=== PATIENT | female | born 2005 | race African-American/Black ===

== ENCOUNTER 2025-01-12 15:56 | Emergency (ER) | payer OTHER ==
[~2025-01-12] VITALS: Ht 172.7 cm; Wt 75.0 kg
[2025-01-12 16:04] VITALS: O2SAT 100
[2025-01-12 17:35] LABS: BASOPHILS % 0.6 % (0.0-2.0); DIFFERENTIAL COMMENT 0; EOSINOPHILS % 0.8 % (0.0-5.0); HEMATOCRIT. 32.9 % (36.0-48.0); HEMOGLOBIN. 10.5 g/dL (12.0-16.0); LYMPHOCYTES % 33.6 % (20.0-50.0); MEAN CORPUSCULAR HEMOGLOBIN 22.9 pg (28.0-32.0); MEAN CORPUSCULAR HGB CONC 31.8 g/dL (31.0-37.0); MEAN PLATELET VOLUME 8.3 fl (7.4-10.4); MONOCYTES % 8.7 % (2.0-8.0); NEUTROPHILS % 56.3 % (40.0-76.0); PLATELET 389 x1000/uL (130-400); RED BLOOD CELL COUNT 4.58 mill/uL (4.2-5.4); RED CELL DISTRIBUTION WIDTH 19.5 % (11.6-14.6); WHITE BLOOD COUNT 5.8 x1000/uL (4.5-11.0)
[2025-01-12 17:42] LABS: CHLORIDE 104 mEq/L (98-107); POTASSIUM 3.9 mEq/L (3.5-5.1); SODIUM 137 mEq/L (136-145)
[2025-01-12 17:43] LABS: CALCIUM 9.7 mg/dL (8.7-10.4); CARBON DIOXIDE 28 mEq/L (21-32)
[2025-01-12 17:48] LABS: CREATININE 0.8 mg/dL (0.6-1.0); GLUCOSE 94 mg/dL (70-105); UREA NITROGEN BLOOD 10 mg/dL (9-23)
[2025-01-12 17:49] LABS: B-HCG QUANTITATIVE 343 mIU/mL (<6)
[2025-01-12 18:13] LABS: CLARITY URINE CLOUDY (CLEAR); COLOR URINE YELLOW (YELLOW); GLUCOSE URINE NEGATIVE (NEGATIVE); KETONES URINE NEGATIVE (NEGATIVE); LEUKOCYTE ESTERASE URINE 1+ (NEGATIVE); NITRITE URINE NEGATIVE (NEGATIVE); OCCULT BLOOD URINE 3+ (NEGATIVE); PROTEIN URINE NEGATIVE (NEGATIVE); SPECIFIC GRAVITY URINE 1.021 (1.005-1.030); UROBILINOGEN URINE 0.2 E.U./dL (0.2-1.0)
[2025-01-12 19:02] LABS: BACTERIA URINE 3+; SQUAMOUS EPITHELIAL CELL URINE 2+ /lpf (RARE/1+)
[2025-01-12] MEDS ORDERED: NITR100C MT (19:09)
[2025-01-12 19:17] VITALS: BP 105/72; PULSE 88; RESP 18; TEMP 36.7; O2SAT 100
== END 2025-01-12 19:21 | disposition home or self-care (01) ==
LOC: EDBD 15:56 → ER 15:56
DX: O20.0 Threatened abortion (principal); O23.40 Unspecified infection of urinary tract in pregnancy, unspecified trimester; N39.0 Urinary tract infection, site not specified; Z3A.00 Weeks of gestation of pregnancy not specified
CPT/HCPCS: 36415; 76801; 80048; 81003; 81025; 84702; 85025; 86850; 86900; 99284

== ENCOUNTER 2025-01-14 13:42 | Emergency (ER) | payer OTHER ==
[~2025-01-14] VITALS: Ht 172.7 cm; Wt 74.0 kg
[~2025-01-14 13:42] MED LIST: NITR100C MT
[2025-01-14 13:44] VITALS: O2SAT 98
[2025-01-14 16:29] VITALS: BP 115/72; PULSE 78; RESP 18; TEMP 36.7; O2SAT 98
== END 2025-01-14 16:29 | disposition home or self-care (01) ==
LOC: ER 13:42
DX: O03.9 Complete or unspecified spontaneous abortion without complication (principal); N89.8 Other specified noninflammatory disorders of vagina; Z88.6 Allergy status to analgesic agent; Z3A.01 Less than 8 weeks gestation of pregnancy
CPT/HCPCS: 36415; 76830; 76856; 84702; 99284

== ENCOUNTER 2025-02-23 19:13 | Inpatient (IN) | payer MEDICAID, OTHER ==
[~2025-02-23] VITALS: Ht 172.7 cm; Wt 64.0 kg
[2025-02-23 20:10] LABS: BASOPHILS % 0.3 % (0.0-2.0); EOSINOPHILS % 0.2 % (0.0-5.0); HEMATOCRIT. 32.3 % (36.0-48.0); HEMOGLOBIN. 10.2 g/dL (12.0-16.0); LYMPHOCYTES % 19.6 % (20.0-50.0); MEAN PLATELET VOLUME 7.6 fl (7.4-10.4); MONOCYTES % 5.8 % (2.0-8.0); NEUTROPHILS % 74.1 % (40.0-76.0); PLATELET 403 x1000/uL (130-400); RED BLOOD CELL COUNT 4.37 mill/uL (4.2-5.4); RED CELL DISTRIBUTION WIDTH 19.1 % (11.6-14.6)
[2025-02-23 20:23] LABS: CREATININE 0.9 mg/dL (0.6-1.0)
[2025-02-23 20:24] LABS: UREA NITROGEN BLOOD 14 mg/dL (9-23)
[2025-02-23 20:46] LABS: B-HCG QUANTITATIVE 2268 mIU/mL (<6)
[2025-02-23] MEDS ORDERED: SODIUM CHLORIDE 0.9% 1,000 ML IV ONE (21:30)
[2025-02-23] MEDS: LACTATED RINGERS 1,000 ML IV SCH (22:46)
[2025-02-23] MEDS: ONDANSETRON HCL 4MG/2ML INJ IV ONE (22:46)
[2025-02-23] MEDS: MORPHINE SULFATE 4 MG/ML INJ (FOR IV/IM USE) IV ONE (22:46)
[2025-02-24] VITALS (7 sets, daily range): BP systolic 98–110; BP diastolic 40–72; PULSE 81–107; RESP 18–22; TEMP 36.1–37.1; O2SAT 95–100
[2025-02-24] MEDS ORDERED: IPRATROPIUM/ALBUTEROL 0.5-3(2.5)MG/3ML NEB HHN PRN
[2025-02-24] MEDS ORDERED: DEXTROSE 50% WATER 50ML SYRINGE IV PRN
[2025-02-24] MEDS ORDERED: ONDANSETRON HCL 4MG/2ML INJ IV PRN ×2 (01:15)
[2025-02-24] MEDS ORDERED: ROCURONIUM BROMIDE 10MG/ML VIAL 5ML IV ONE ×2 (01:18→01:55)
[2025-02-24] MEDS ORDERED: PROPOFOL 200MG/20ML VIAL IV ONE (01:19)
[2025-02-24] MEDS ORDERED: LIDOCAINE HCL 2% 5ML SYRINGE IV ONE (01:21)
[2025-02-24] MEDS ORDERED: FENTANYL CITRATE/PF 50MCG/ML 2ML VIAL ONE (01:27)
[2025-02-24] MEDS ORDERED: MIDAZOLAM HCL 2 MG/2 ML VIAL ONE (01:27)
[2025-02-24] MEDS ORDERED: ONDANSETRON HCL 4MG/2ML INJ ONE (01:42)
[2025-02-24] MEDS ORDERED: METOCLOPRAMIDE HCL 10MG/2ML VIAL ONE (01:42)
[2025-02-24 01:45] LABS: PHOSPHORUS 3.1 mg/dL (2.5-4.9)
[2025-02-24] MEDS ORDERED: ACETAMINOPHEN 650MG SUPP PR PRN (01:45)
[2025-02-24] MEDS ORDERED: CEFAZOLIN SODIUM 1000MG/VIAL ONE (01:53)
[2025-02-24] MEDS: MEPERIDINE HCL/PF 25MG/ML CPJ IV PRN (02:35)
[2025-02-24] MEDS: HYDROMORPHONE HCL/PF 1MG/ML INJ IV PRN (02:51)
[2025-02-24] MEDS: CEFAZOLIN 1000MG PREMIX 50 ML IV SCH (05:17)
[2025-02-24] MEDS: MORPHINE SULFATE 2 MG/ML INJ (NOT FOR IM USE) IV PRN ×2 (05:27→11:19)
[2025-02-24] MEDS: BLOOD SUGAR DIAGNOSTIC STRIP TEST SCH (06:00)
[2025-02-24] MEDS: DEXT 5%/0.45% NACL KCL 20MEQ/L 1,000 ML IV SCH (06:01)
[2025-02-24 06:38] LABS: CLARITY URINE CLEAR (CLEAR); COLOR URINE YELLOW (YELLOW); GLUCOSE URINE NEGATIVE (NEGATIVE); KETONES URINE 2+ (NEGATIVE); LEUKOCYTE ESTERASE URINE NEGATIVE (NEGATIVE); NITRITE URINE NEGATIVE (NEGATIVE); OCCULT BLOOD URINE NEGATIVE (NEGATIVE); PH URINE 5.5 (4.5-8.0); PROTEIN URINE 1+ (NEGATIVE); SPECIFIC GRAVITY URINE 1.037 (1.005-1.030); UROBILINOGEN URINE 0.2 E.U./dL (0.2-1.0)
[2025-02-24 06:59] LABS: SQUAMOUS EPITHELIAL CELL URINE FEW /lpf (RARE/1+)
[2025-02-24 07:04] LABS: RBC URINE 0-2 /hpf (0-2)
[2025-02-24 07:05] LABS: BACTERIA URINE NONE SEEN
[2025-02-24 07:11] LABS: *AMPHETAMINES SCREEN URINE NEGATIVE (NEGATIVE)
[2025-02-24 07:12] LABS: *BARBITURATES SCREEN URINE NEGATIVE (NEGATIVE); *BENZODIAZEPINES SCREEN URINE PRESUMPTIVE POSITIVE (NEGATIVE)
[2025-02-24 07:13] LABS: *COCAINE SCREEN URINE NEGATIVE (NEGATIVE); CANNABINOID URINE SCREEN NEGATIVE (NEGATIVE); ECSTASY MDMA SCREEN URINE NEGATIVE (NEGATIVE); METHADONE URINE SCREEN NEGATIVE (NEGATIVE); OPIATES URINE SCREEN PRESUMPTIVE POSITIVE (NEGATIVE); PHENCYCLIDINE URINE SCREEN NEGATIVE (NEGATIVE)
[2025-02-24 07:41] LABS: INR 1.0
[2025-02-24 07:42] LABS: BASOPHILS % 0.3 % (0.0-2.0); EOSINOPHILS % 0.1 % (0.0-5.0); HEMATOCRIT. 31.3 % (36.0-48.0); HEMOGLOBIN. 10.1 g/dL (12.0-16.0); LYMPHOCYTES % 22.2 % (20.0-50.0); MEAN PLATELET VOLUME 8.1 fl (7.4-10.4); MONOCYTES % 6.9 % (2.0-8.0); NEUTROPHILS % 70.5 % (40.0-76.0); PLATELET 365 x1000/uL (130-400); RED BLOOD CELL COUNT 4.24 mill/uL (4.2-5.4); RED CELL DISTRIBUTION WIDTH 18.9 % (11.6-14.6)
[2025-02-24 07:56] LABS: CREATININE 0.8 mg/dL (0.6-1.0)
[2025-02-24 07:57] LABS: LDL CHOLESTEROL 75 mg/dL (5-100); TRIGLYCERIDE 38 mg/dL (0-150); UREA NITROGEN BLOOD 11 mg/dL (9-23)
[2025-02-24 08:00] LABS: T4 FREE 1.12 ng/dL (0.89-1.76)
[2025-02-24] MEDS: SODIUM CHLORIDE 0.9% 1,000 ML IV SCH (08:33)
[2025-02-24] MEDS: ONDANSETRON HCL 4MG/2ML INJ IV PRN (16:00)
[2025-02-25] VITALS: BP 101/53; PULSE 68; RESP 20; TEMP 36; O2SAT 97
[2025-02-25 04:00] VITALS: BP 105/61; PULSE 99; RESP 19; TEMP 36.2; O2SAT 98
[2025-02-25] MEDS ORDERED: NITROGLYCERIN 0.4MG TABLET SL SL PRN (05:00)
[2025-02-25] MEDS: SODIUM CHLORIDE 0.9% 500 ML IV ONE (05:25)
[2025-02-25 08:00] VITALS: BP 89/46; PULSE 111; RESP 16; TEMP 36.9; O2SAT 95
[2025-02-25] MEDS ORDERED: SODIUM CHLORIDE 0.9% 500 ML IV SCH (08:29)
[2025-02-25 09:51] LABS: BASOPHILS % 0.3 % (0.0-2.0); EOSINOPHILS % 1.1 % (0.0-5.0); HEMATOCRIT. 27.1 % (36.0-48.0); HEMOGLOBIN. 8.6 g/dL (12.0-16.0); LYMPHOCYTES % 25.7 % (20.0-50.0); MEAN PLATELET VOLUME 8.1 fl (7.4-10.4); MONOCYTES % 10.9 % (2.0-8.0); NEUTROPHILS % 62.0 % (40.0-76.0); PLATELET 304 x1000/uL (130-400); RED BLOOD CELL COUNT 3.68 mill/uL (4.2-5.4); RED CELL DISTRIBUTION WIDTH 18.6 % (11.6-14.6)
[2025-02-25] MEDS: ENOXAPARIN 40MG/0.4ML SYR SUBCUT SCH (09:52)
[2025-02-25 10:00] LABS: CREATININE 0.7 mg/dL (0.6-1.0); UREA NITROGEN BLOOD 7 mg/dL (9-23)
[2025-02-25 12:00] VITALS: BP 118/65; PULSE 108; RESP 17; TEMP 36.9; O2SAT 99
[2025-02-25] MEDS ORDERED: TOPUD PO (13:42)
[2025-02-25 16:00] VITALS: BP 126/63; PULSE 107; RESP 19; TEMP 36.7; O2SAT 97
[2025-02-25 16:18] VITALS: BP 126/63; PULSE 102; TEMP 98; O2SAT 92
[2025-02-25] MEDS ORDERED: NALOXONE HCL 0.4MG/ML VIAL IV PRN (17:45)
== END 2025-02-25 17:00 | disposition home or self-care (01) | DRG 547 ==
LOC: ER 19:13 → 6WST 22:29 → EDBEDREQTM 22:42 → EDBEDREQSVC 22:42 → EDBEDREQ 22:42 → ENRESERV 23:40
PROVIDERS: ADMIT Hospitalist; ATTEND Hospitalist
PROC: 10T20ZZ Resection of Products of Conception, Ectopic, Open Approach (ICD-10-PCS; principal; 2025-02-24)
PROC: 0UB60ZZ Excision of Left Fallopian Tube, Open Approach (ICD-10-PCS; 2025-02-24)
DX: O00.102 Left tubal pregnancy without intrauterine pregnancy (principal); N83.11 Corpus luteum cyst of right ovary
CPT/HCPCS: 36415; 76801; 80048; 80061; 80305; 81003; 82550; 82962; 83036; 83735; 84100; 84439; 84443; 84702; 85014; 85018; 85025; 86850; 86900; 88302; 93005; 99291; J0690; J1171; J1650; J2003; J2175; J2250; J2270; J2405; J2704; J2765; J3010; J3490; J7030; J7120